=== PATIENT | male | born 1985 | race African-American/Black ===

== ENCOUNTER 2022-12-28 11:50 | Emergency (ER) | payer SELFPAY ==
[2022-12-28 12:01] VITALS: BP 126/80; PULSE 82; RESP 16; TEMP 98; BMI 30.7
[2022-12-28] MEDS ORDERED: MECLIZINE HCL 25 MG TABLET (FP) PO ONE (13:16)
[2022-12-28] MEDS ORDERED: MECLIZINE HCL 25 MG TABLET (FP) ONE (13:35)
== END 2022-12-28 14:42 | disposition home or self-care (01) ==
LOC: JER 11:50
DX: H81.10 Benign paroxysmal vertigo, unspecified ear (principal)
CPT/HCPCS: 99283-25